=== PATIENT | male | born 1980 | race Caucasian/White ===

== ENCOUNTER 2016-04-27 14:07 | Emergency (ER) | payer BC ==
[2016-04-27] MEDS ORDERED: LORazepam 1 MG TAB As Ordered ONE (15:20)
[2016-04-27] MEDS ORDERED: NICOTINE 21MG/24HR 1 EA TRANSDERMAL As Ordered ONE (15:25)
[2016-04-27 16:06] LABS: ANION GAP 6 MEQ/L (8-16); BLOOD UREA NITROGEN 7 MG/DL (7-18); CALCIUM LEVEL 8.6 MG/DL (8.5-10.1); CARBON DIOXIDE LEVEL 31 MEQ/L (21-32); CHLORIDE LEVEL 109 MEQ/L (98-107); CREATININE FOR GFR 0.75 MG/DL (0.70-1.30); GLOMERULAR FILTRATION RATE > 60.0 (>60); GLUCOSE, FASTING 108 MG/DL (70-105); POTASSIUM SERUM 3.7 MEQ/L (3.5-5.1); SODIUM LEVEL 146 MEQ/L (136-145)
--- NOTE | 2016-04-27 17:01 | EDDOCDS ---
Physician Documentation [facility] Name: Edy Phelan Age: 35 yrs Sex: Male : 1980 Arrival Date: 04/27/2016 Time: 14:07 Bed D1 Private MD: Sathya Salazar MD Disposition: 04/27/16 16:52 Patient has left against medical advice. Impression: Alcohol abuse with intoxication. - Patients states they are going to Home/Self Care. - Condition is Fair. - Discharge Instructions: Alcohol Use Disorder. Medication Reconciliation, Local Pharmacy Hours form. Follow up: Sathya Salazar; When: Call to arrange an appointment; Reason: Recheck today's complaints, Continuance of care. - Problem is new. - Symptoms are unchanged. Historical: - Allergies: Demerol; opiates; - Home Meds: 1. lisinopril 20 mg Oral tab 1 tab once daily (Last dose: Unknown) 2. Prilosec 40 mg Oral cpDR 1 cap once daily (Last dose: Unknown) 3. metoprolol tartrate 100 mg oral tab 1 tab once daily (Last dose: Unknown) 4. simvastatin 40 mg oral tab 1 tab once daily (Last dose: Unknown) - PMHx: Alcoholism; GERD; Hypercholesterolemia; Hypertension; - PSHx: Cleft pallet and lip repair; - Social history: Smoking status: Patient uses tobacco products, heavy tobacco smoker. No barriers to communication noted, The patient speaks fluent Swedish. - Family history: Not pertinent. - : The pt / caregiver states he / she is not on anticoagulants. Home medication list is obtained from the patient, [employer] import data. - Exposure Risk Screening:: None identified. Vital Signs: 04/27 14:09 BP 174 / 108; Pulse 94; Resp 18; Temp 97.6(O); Pulse Ox 97% ; Weight 70.76 kg / 156 lbs cmb (M); Height 5 ft. 11 in. (180.34 cm); Pain 7/10; 14:09 Body Mass Index 21.76 (70.76 kg, 180.34 cm) cmb MDM: 15:10 Misc. Nursing Order ordered. sd1 15:10 Consult: Tin Worker ordered. sd1 15:11 MED Profile Ordered. EDMS 15:12 LORazepam 2 mg PO once ordered. bs6 15:32 Nicotine Patch 21 mg/24 hr 1 applic Transdermal once ordered. jc4 16:08 MED Profile Reviewed. sd1 Administered Medications: 15:23 Drug: LORazepam 2 mg [lorazepam 1 mg tablet (2 tabs)] Route: PO; jc4 15:32 Drug: Nicotine 1 applic [nicotine 21 mg/24 hr daily transdermal patch (1 patches)] jc4 Route: Transdermal; Site: left upper arm; Signatures: Dispatcher [employer] EDEmely Murphy MD MD sd1 Catrina Ramirez RN RN kcs Jeannie Rodriguez RN RN jc4 Toya Landis DO DO bs6 The chart was reviewed and I authenticate all verbal orders and agree with the evaluation and treatment provided.Corrections: (The following items were deleted from the chart) 16:28 14:23 Home Meds: Lisinopril Oral once daily; [facility] jc4 16:28 14:23 Home Meds: Prilosec 40 mg Oral cpDR 1 cap once daily; [facility] jc4 16: 14:23 Home Meds: Metoprolol Tartrate Oral once daily; [facility] 16:28 14:23 Home Meds: Simvastatin Oral once daily; [facility] jc4 MTDD
--- NOTE | 2016-04-27 17:01 | EDDOCDS ---
Nurse's Notes [facility] Name: Edy Phelan Age: 35 yrs Sex: Male : 1980 Arrival Date: 04/27/2016 Time: 14:07 Bed D1 Private MD: Sathya Salazar MD Diagnosis: Alcohol abuse with intoxication Presentation: 04/27 14:21 Presenting complaint: Patient states: he has been drinking straight for 4 days - here kcs for detox. Mental Health Triage Level: Level 1- Pt displays no suicidal or homicidal ideations and does not appear to be a danger to self or others. Adult Sepsis Screening: The patient does not have new or worsening altered mentation. Patient's respiratory rate is less than 22. Systolic blood pressure is greater than 100. Patient has a qSOFA score of 0- Negative Sepsis Screen. Suicide/Homicide risk assessment- the patient denies having any suicidal and/or homicidal ideations and does not present with any other emotional, behavioral or mental health complaints. Status: Patient is not a library services assistant or dependent. Transition of care: patient was not received from another setting of care. 14:21 Acuity: EDWARD Level 3 kcs 14:21 Method Of Arrival: Walkin/Carried/Asstd kcs Triage Assessment: 14:23 General: Appears unkempt, well developed, well nourished, Behavior is restless, kcs inappropriate laughing, swearing and calling me "babe". Pain: Denies pain. HIV screening NA for this visit Offered previously. Neurological: Level of Consciousness is awake, alert. Respiratory: Airway is patent Respiratory effort is even, unlabored, Respiratory pattern is regular, symmetrical. Derm: Skin is intact, is healthy with good turgor, Skin is dry, Skin is normal. Historical: - Allergies: Demerol; opiates; - Home Meds: 1. lisinopril 20 mg Oral tab 1 tab once daily (Last dose: Unknown) 2. Prilosec 40 mg Oral cpDR 1 cap once daily (Last dose: Unknown) 3. metoprolol tartrate 100 mg oral tab 1 tab once daily (Last dose: Unknown) 4. simvastatin 40 mg oral tab 1 tab once daily (Last dose: Unknown) - PMHx: Alcoholism; GERD; Hypercholesterolemia; Hypertension; - PSHx: Cleft pallet and lip repair; - Social history: Smoking status: Patient uses tobacco products, heavy tobacco smoker. No barriers to communication noted, The patient speaks fluent Estonian. - Family history: Not pertinent. - : The pt / caregiver states he / she is not on anticoagulants. Home medication list is obtained from the patient, [employer] import data. - Exposure Risk Screening:: None identified. Screenin:59 Screening information is obtained from left prior to speaking with staff. Fall risk: [facility] Unable to Assess. Assistance ADL's:. Assistance ADL's: unable to assess. Abuse/DV Screen: Unable to Assess. Nutritional screening: Unable to Assess. Advance Directives: Unable to assess Advance Directive status due to pt condition. home support is adequate. 17:00 Abuse/DV Screen: The patient / caregiver reports he/she is: pt cannot be assessed for [facility] living situation at this time. Assessment: 15:34 General: Appears in no apparent distress, Pt sitting on stretcher. States, "what [facility] happens if I go out to smoke?" Pt aware has Nicotine patch on. Pt alert. States has had last drink while he was in the truck pulling into hospital driveway. Color pink, skin warm and dry. Respirations easy and full. Family member at bedside. 16:28 General: Pt sitting up on stretcher. Eating at this time. No distress noted at this [facility] time. 16:57 General: Pt left department. Pt's visitor (ex-girlfriend"s grandfather) presented to [facility] the desk and stated, "I guess he got a cab ride home". Pt left prior to speaking with nurse. Vital Signs: 14:09 BP 174 / 108; Pulse 94; Resp 18; Temp 97.6(O); Pulse Ox 97% ; Weight 70.76 kg (M); cmb Height 5 ft. 11 in. (180.34 cm); Pain 7/10; 14:09 Body Mass Index 21.76 (70.76 kg, 180.34 cm) cmb Vitals: 14:09 Log In Time: April 27, 2016 at 14:07. b ED Course: 14:08 Patient visited by Kinza Dill. cmb 14:08 Sathya Salazar is Private Physician. cmb 14:08 Patient moved to Waiting b 14:11 RN notified that patient meets Red Flag criteria. cmb 14:14 Patient moved to Pre RCE cmb 14:22 Triage Initiated kcs 14:52 Jeannie Rodriguez, NICANOR is Primary Nurse. dsf 14:52 Patient moved to 8 dsf 14:54 Emely Gomez MD is Attending Physician. sd1 14:54 [facility] bs[facility] 15:12 Patient visited by Toya Landis DO. bs6 15:12 Patient visited by Toya Landis DO. bs6 15:32 MED Profile Sent. jc4 15:34 The patient / caregiver is instructed regarding the plan of care and ED course. jc4 16:28 Patient visited by Jeannie Rodriguez RN. jc4 16:51 Sathya Salazar is Referral Physician. bs6 16:51 Patient moved to D1 [facility] 16:59 No IV's were initiated during this patient's visit. No procedures done that require jc4 assistance. Administered Medications: 15:23 Drug: LORazepam 2 mg [lorazepam 1 mg tablet (2 tabs)] Route: PO; jc4 15:32 Drug: Nicotine 1 applic [nicotine 21 mg/24 hr daily transdermal patch (1 patches)] jc4 Route: Transdermal; Site: left upper arm; Order Results: Lab Order: MED Profile; SPEC'M 04/27/16 15:32 Test: GLUCOSE, FASTING; Value: 108; Range: 70-105; Abnormal: Above high normal; Units: MG/DL; Status: F Test: BLOOD UREA NITROGEN; Value: 7; Range: 7-18; Units: MG/DL; Status: F Test: CREATININE FOR GFR; Value: 0.75; Range: 0.70-1.30; Units: MG/DL; Status: F Test: GLOMERULAR FILTRATION RATE; Value: > 60.0; Range: >60; Status: F Test: SODIUM LEVEL; Value: 146; Range: 136-145; Abnormal: Above high normal; Units: MEQ/L; Status: F Test: POTASSIUM SERUM; Value: 3.7; Range: 3.5-5.1; Units: MEQ/L; Status: F Test: CHLORIDE LEVEL; Value: 109; Range: 98-107; Abnormal: Above high normal; Units: MEQ/L; Status: F Test: CARBON DIOXIDE LEVEL; Value: 31; Range: 21-32; Units: MEQ/L; Status: F Test: ANION GAP; Value: 6; Range: 8-16; Abnormal: Below low normal; Units: MEQ/L; Status: F Test: CALCIUM LEVEL; Value: 8.6; Range: 8.5-10.1; Units: MG/DL; Status: F Test Note: ; Units are mL/min/1.73 m2 Chronic Kidney Disease Staging per NKF: Stage I & II GFR >=60 Normal to Mildly Decreased Stage III GFR 30-59 Moderately Decreased Stage IV GFR 15-29 Severely Decreased Stage V GFR <15 Very Little GFR Left ESRD GFR <15 on VP HOME HEALTH Outcome: 16:52 Patient left against medical advice. bs6 16:58 Discharge Assessment: patient administered narcotics - yes. Pt provided with safe jc4 discharge. The following High Risk Discharge criteria are identified: Yes, patient is high-risk due to AMA status. The patient is leaving AMA: Left before signing form, Notification of AMA status is made to the charge nurse, the marriage and family social worker, the ED attending physician. Condition: undetermined. No special radiology studies were completed. Property :Personal belongings accompany Pt. 17:01 Patient left the ED. 4 Signatures: Emely Gomez MD MD sd1 Catrina Ramirez RN RN Judi Stanford RN Jeannie Hoskins RN RN jc4 Fuller, Desiree, RN RN dsf Boshart, Chelsea cmb Schoeneman, Brogan, DO DO bs6 Corrections: (The following items were deleted from the chart) 14:11 14:09 BP 174 / 108; Pulse 94bpm; Resp 18bpm; Pulse Ox 97%; Temp 97.6F; Height 5 ft. 11 cmb in.; Pain 7/10; cmb 16:28 14:23 Home Meds: Lisinopril Oral once daily; kcs jc4 16: 14:23 Home Meds: Prilosec 40 mg Oral cpDR 1 cap once daily; kcs jc4 16: 14:23 Home Meds: Metoprolol Tartrate Oral once daily; kcs jc4 16: 14:23 Home Meds: Simvastatin Oral once daily; kcs jc4 MTDD
--- NOTE | 2016-04-29 18:01 | EDDOCDS ---
Physician Documentation [facility] Name: Edy Phelan Age: 35 yrs Sex: Male : 1980 Arrival Date: 04/27/2016 Time: 14:07 Bed D1 Private MD: Sathya Salazar MD Disposition: 04/27/16 16:52 Patient has left against medical advice. Impression: Alcohol abuse with intoxication. - Patients states they are going to Home/Self Care. - Condition is Fair. - Discharge Instructions: Alcohol Use Disorder. Medication Reconciliation, Local Pharmacy Hours form. Follow up: Sathya Salzaar; When: Call to arrange an appointment; Reason: Recheck today's complaints, Continuance of care. - Problem is new. - Symptoms are unchanged. Historical: - Allergies: Demerol; opiates; - Home Meds: 1. lisinopril 20 mg Oral tab 1 tab once daily (Last dose: Unknown) 2. Prilosec 40 mg Oral cpDR 1 cap once daily (Last dose: Unknown) 3. metoprolol tartrate 100 mg oral tab 1 tab once daily (Last dose: Unknown) 4. simvastatin 40 mg oral tab 1 tab once daily (Last dose: Unknown) - PMHx: Alcoholism; GERD; Hypercholesterolemia; Hypertension; - PSHx: Cleft pallet and lip repair; - Social history: Smoking status: Patient uses tobacco products, heavy tobacco smoker. No barriers to communication noted, The patient speaks fluent Chinese. - Family history: Not pertinent. - : The pt / caregiver states he / she is not on anticoagulants. Home medication list is obtained from the patient, [employer] import data. - Exposure Risk Screening:: None identified. Vital Signs: 04/27 14:09 BP 174 / 108; Pulse 94; Resp 18; Temp 97.6(O); Pulse Ox 97% ; Weight 70.76 kg / 156 lbs cmb (M); Height 5 ft. 11 in. (180.34 cm); Pain 7/10; 14:09 Body Mass Index 21.76 (70.76 kg, 180.34 cm) cmb MDM: 15:10 Misc. Nursing Order ordered. sd1 15:10 Consult: Motor Vehicle Emissions Inspector ordered. sd1 15:11 MED Profile Ordered. EDMS 15:12 LORazepam 2 mg PO once ordered. bs6 15:32 Nicotine Patch 21 mg/24 hr 1 applic Transdermal once ordered. jc4 16:08 MED Profile Reviewed. sd1 04/28 10:25 Refusal of Services was scanned into [employer] and attached to record. gb : T-Sheet-- Draft Copy was scanned into [employer] and attached to record. gb Administered Medications: 04/27 15:23 Drug: LORazepam 2 mg [lorazepam 1 mg tablet (2 tabs)] Route: PO; jc4 15:32 Drug: Nicotine 1 applic [nicotine 21 mg/24 hr daily transdermal patch (1 patches)] jc4 Route: Transdermal; Site: left upper arm; Signatures: Dispatcher [employer] EDEmely Murphy MD MD sd1 Catrina Ramirez, RN RN Norma Tello Reg Reg gb Castle, Jennifer, RN RN jc4 Toya Landis DO DO bs6 The chart was reviewed and I authenticate all verbal orders and agree with the evaluation and treatment provided.Corrections: (The following items were deleted from the chart) 16:28 14:23 Home Meds: Lisinopril Oral once daily; kcs jc4 16:28 14:23 Home Meds: Prilosec 40 mg Oral cpDR 1 cap once daily; kcs jc4 16:28 14:23 Home Meds: Metoprolol Tartrate Oral once daily; kcs jc4 16:28 14:23 Home Meds: Simvastatin Oral once daily; kcs jc4 Attachments: 10:26 T-Sheet-- Draft Copy gb Chart Complete MTDD
--- NOTE | 2016-04-29 18:01 | EDDOCDS ---
Physician Documentation [facility] Name: Edy Phelan Age: 35 yrs Sex: Male : 1980 Arrival Date: 04/27/2016 Time: 14:07 Bed D1 Private MD: Sathya Salazar MD Disposition: 04/27/16 16:52 Patient has left against medical advice. Impression: Alcohol abuse with intoxication. - Patients states they are going to Home/Self Care. - Condition is Fair. - Discharge Instructions: Alcohol Use Disorder. Medication Reconciliation, Local Pharmacy Hours form. Follow up: Sathya Salazar; When: Call to arrange an appointment; Reason: Recheck today's complaints, Continuance of care. - Problem is new. - Symptoms are unchanged. Historical: - Allergies: Demerol; opiates; - Home Meds: 1. lisinopril 20 mg Oral tab 1 tab once daily (Last dose: Unknown) 2. Prilosec 40 mg Oral cpDR 1 cap once daily (Last dose: Unknown) 3. metoprolol tartrate 100 mg oral tab 1 tab once daily (Last dose: Unknown) 4. simvastatin 40 mg oral tab 1 tab once daily (Last dose: Unknown) - PMHx: Alcoholism; GERD; Hypercholesterolemia; Hypertension; - PSHx: Cleft pallet and lip repair; - Social history: Smoking status: Patient uses tobacco products, heavy tobacco smoker. No barriers to communication noted, The patient speaks fluent Uzbek. - Family history: Not pertinent. - : The pt / caregiver states he / she is not on anticoagulants. Home medication list is obtained from the patient, [employer] import data. - Exposure Risk Screening:: None identified. Vital Signs: 04/27 14:09 BP 174 / 108; Pulse 94; Resp 18; Temp 97.6(O); Pulse Ox 97% ; Weight 70.76 kg / 156 lbs cmb (M); Height 5 ft. 11 in. (180.34 cm); Pain 7/10; 14:09 Body Mass Index 21.76 (70.76 kg, 180.34 cm) cmb MDM: 15:10 Misc. Nursing Order ordered. sd1 15:10 Consult: Dopeman ordered. sd1 15:11 MED Profile Ordered. EDMS 15:12 LORazepam 2 mg PO once ordered. bs6 15:32 Nicotine Patch 21 mg/24 hr 1 applic Transdermal once ordered. jc4 16:08 MED Profile Reviewed. sd1 04/28 10:25 Refusal of Services was scanned into [employer] and attached to record. gb : T-Sheet-- Draft Copy was scanned into [employer] and attached to record. gb Administered Medications: 04/27 15:23 Drug: LORazepam 2 mg [lorazepam 1 mg tablet (2 tabs)] Route: PO; jc4 15:32 Drug: Nicotine 1 applic [nicotine 21 mg/24 hr daily transdermal patch (1 patches)] jc4 Route: Transdermal; Site: left upper arm; Signatures: Dispatcher [employer] EDEmely Murphy MD MD sd1 Catrina Ramirez, RN RN Norma Tello Reg Reg gb Castle, Jennifer, RN RN jc4 Toya Landis DO DO bs6 The chart was reviewed and I authenticate all verbal orders and agree with the evaluation and treatment provided.Corrections: (The following items were deleted from the chart) 16:28 14:23 Home Meds: Lisinopril Oral once daily; kcs jc4 16:28 14:23 Home Meds: Prilosec 40 mg Oral cpDR 1 cap once daily; kcs jc4 16:28 14:23 Home Meds: Metoprolol Tartrate Oral once daily; kcs jc4 16:28 14:23 Home Meds: Simvastatin Oral once daily; kcs jc4 Attachments: 10:26 T-Sheet-- Draft Copy gb Chart Complete MTDD
--- NOTE | 2016-04-29 18:01 | EDDOCDS ---
Nurse's Notes [facility] Name: Edy Phelan Age: 35 yrs Sex: Male : 1980 Arrival Date: 04/27/2016 Time: 14:07 Bed D1 Private MD: Sathya Salazar MD Diagnosis: Alcohol abuse with intoxication Presentation: 04/27 14:21 Presenting complaint: Patient states: he has been drinking straight for 4 days - here kcs for detox. Mental Health Triage Level: Level 1- Pt displays no suicidal or homicidal ideations and does not appear to be a danger to self or others. Adult Sepsis Screening: The patient does not have new or worsening altered mentation. Patient's respiratory rate is less than 22. Systolic blood pressure is greater than 100. Patient has a qSOFA score of 0- Negative Sepsis Screen. Suicide/Homicide risk assessment- the patient denies having any suicidal and/or homicidal ideations and does not present with any other emotional, behavioral or mental health complaints. Status: Patient is not a implementation services analyst or dependent. Transition of care: patient was not received from another setting of care. 14:21 Acuity: EDWARD Level 3 kcs 14:21 Method Of Arrival: Walkin/Carried/Asstd kcs Triage Assessment: 14:23 General: Appears unkempt, well developed, well nourished, Behavior is restless, kcs inappropriate laughing, swearing and calling me "babe". Pain: Denies pain. HIV screening NA for this visit Offered previously. Neurological: Level of Consciousness is awake, alert. Respiratory: Airway is patent Respiratory effort is even, unlabored, Respiratory pattern is regular, symmetrical. Derm: Skin is intact, is healthy with good turgor, Skin is dry, Skin is normal. Historical: - Allergies: Demerol; opiates; - Home Meds: 1. lisinopril 20 mg Oral tab 1 tab once daily (Last dose: Unknown) 2. Prilosec 40 mg Oral cpDR 1 cap once daily (Last dose: Unknown) 3. metoprolol tartrate 100 mg oral tab 1 tab once daily (Last dose: Unknown) 4. simvastatin 40 mg oral tab 1 tab once daily (Last dose: Unknown) - PMHx: Alcoholism; GERD; Hypercholesterolemia; Hypertension; - PSHx: Cleft pallet and lip repair; - Social history: Smoking status: Patient uses tobacco products, heavy tobacco smoker. No barriers to communication noted, The patient speaks fluent Croatian. - Family history: Not pertinent. - : The pt / caregiver states he / she is not on anticoagulants. Home medication list is obtained from the patient, [employer] data. - Exposure Risk Screening:: None identified. Screenin:59 Screening information is obtained from left prior to speaking with staff. Fall risk: [facility] Unable to Assess. Assistance ADL's:. Assistance ADL's: unable to assess. Abuse/DV Screen: Unable to Assess. Nutritional screening: Unable to Assess. Advance Directives: Unable to assess Advance Directive status due to pt condition. home support is adequate. 17:00 Abuse/DV Screen: The patient / caregiver reports he/she is: pt cannot be assessed for [facility] living situation at this time. Assessment: 15:34 General: Appears in no apparent distress, Pt sitting on stretcher. States, "what [facility] happens if I go out to smoke?" Pt aware has Nicotine patch on. Pt alert. States has had last drink while he was in the truck pulling into hospital driveway. Color pink, skin warm and dry. Respirations easy and full. Family member at bedside. 16:28 General: Pt sitting up on stretcher. Eating at this time. No distress noted at this [facility] time. 16:57 General: Pt left department. Pt's visitor (ex-girlfriend"s grandfather) presented to [facility] the desk and stated, "I guess he got a cab ride home". Pt left prior to speaking with nurse. Vital Signs: 14:09 BP 174 / 108; Pulse 94; Resp 18; Temp 97.6(O); Pulse Ox 97% ; Weight 70.76 kg (M); cmb Height 5 ft. 11 in. (180.34 cm); Pain 7/10; 14:09 Body Mass Index 21.76 (70.76 kg, 180.34 cm) cmb Vitals: 14:09 Log In Time: April 27, 2016 at 14:07. b ED Course: 14:08 Patient visited by Kinza Dill. cmb 14:08 Sathya Salazar is Private Physician. cmb 14:08 Patient moved to Waiting b 14:11 RN notified that patient meets Red Flag criteria. cmb 14:14 Patient moved to Pre RCE cmb 14:22 Triage Initiated kcs 14:52 Jeannie Rodriguez, NICANOR is Primary Nurse. dsf 14:52 Patient moved to 8 dsf 14:54 Emely Gomez MD is Attending Physician. sd1 14:54 Toya Landis DO is [facility]. bs6 15:12 Patient visited by Toya Landis DO. bs6 15:12 Patient visited by Toya Landis DO. bs6 15:32 MED Profile Sent. jc4 15:34 The patient / caregiver is instructed regarding the plan of care and ED course. jc4 16:28 Patient visited by Jeannie Rodriguez RN. jc4 16:51 Sathya Salazar is Referral Physician. bs6 16:51 Patient moved to D1 [facility] 16:59 No IV's were initiated during this patient's visit. No procedures done that require jc4 assistance. 04/28 10:25 Refusal of Services was scanned into [employer] and attached to record. gb 10:26 T-Sheet-- Draft Copy was scanned into [employer] and attached to record. gb Administered Medications: 04/27 15:23 Drug: LORazepam 2 mg [lorazepam 1 mg tablet (2 tabs)] Route: PO; jc4 15:32 Drug: Nicotine 1 applic [nicotine 21 mg/24 hr daily transdermal patch (1 patches)] jc4 Route: Transdermal; Site: left upper arm; Attachments: 04/28 10:25 Refusal of Services gb Order Results: Lab Order: MED Profile; SPEC'M 04/27/16 15:32 Test: GLUCOSE, FASTING; Value: 108; Range: 70-105; Abnormal: Above high normal; Units: MG/DL; Status: F Test: BLOOD UREA NITROGEN; Value: 7; Range: 7-18; Units: MG/DL; Status: F Test: CREATININE FOR GFR; Value: 0.75; Range: 0.70-1.30; Units: MG/DL; Status: F Test: GLOMERULAR FILTRATION RATE; Value: > 60.0; Range: >60; Status: F Test: SODIUM LEVEL; Value: 146; Range: 136-145; Abnormal: Above high normal; Units: MEQ/L; Status: F Test: POTASSIUM SERUM; Value: 3.7; Range: 3.5-5.1; Units: MEQ/L; Status: F Test: CHLORIDE LEVEL; Value: 109; Range: 98-107; Abnormal: Above high normal; Units: MEQ/L; Status: F Test: CARBON DIOXIDE LEVEL; Value: 31; Range: 21-32; Units: MEQ/L; Status: F Test: ANION GAP; Value: 6; Range: 8-16; Abnormal: Below low normal; Units: MEQ/L; Status: F Test: CALCIUM LEVEL; Value: 8.6; Range: 8.5-10.1; Units: MG/DL; Status: F Test Note: ; Units are mL/min/1.73 m2 Chronic Kidney Disease Staging per NKF: Stage I & II GFR >=60 Normal to Mildly Decreased Stage III GFR 30-59 Moderately Decreased Stage IV GFR 15-29 Severely Decreased Stage V GFR <15 Very Little GFR Left ESRD GFR <15 on TRACK RIDER Outcome: 04/27 16:52 Patient left against medical advice. bs6 16:58 Discharge Assessment: patient administered narcotics - yes. Pt provided with safe jc4 discharge. The following High Risk Discharge criteria are identified: Yes, patient is high-risk due to AMA status. The patient is leaving AMA: Left before signing form, Notification of AMA status is made to the charge nurse, the psychiatric social worker, the ED attending physician. Condition: undetermined. No special radiology studies were completed. Property :Personal belongings accompany Pt. 17:01 Patient left the ED. 4 Signatures: Emely Gomez MD MD sd1 Catrina Ramirez RN RN Judi Stanford RN RN Norma De La Garza, David Reg Jeannie Sutton RN RN jc4 Beatriz Rodríguez,RN RN Kinza Christine Brogan, DO DO bs6 Corrections: (The following items were deleted from the chart) 14:11 14:09 BP 174 / 108; Pulse 94bpm; Resp 18bpm; Pulse Ox 97%; Temp 97.6F; Height 5 ft. 11 cmb in.; Pain 7/10; cmb 16:28 14:23 Home Meds: Lisinopril Oral once daily; eduar ramesh4 : Home Meds: Prilosec 40 mg Oral cpDR 1 cap once daily; kcs jc4 Home Meds: Metoprolol Tartrate Oral once daily; kcs jc4 Home Meds: Simvastatin Oral once daily; [facility] jc4 Chart Complete MTDD
== END 2016-04-27 17:01 | disposition left against medical advice (07) ==
LOC: M ED 14:07
DX: F10.220 Alcohol dependence with intoxication, uncomplicated (principal); K21.9 Gastro-esophageal reflux disease without esophagitis; E78.00 Pure hypercholesterolemia, unspecified; I10 Essential (primary) hypertension; F17.210 Nicotine dependence, cigarettes, uncomplicated; Z79.899 Other long term (current) drug therapy; Z88.8 Allergy status to other drugs, medicaments and biological substances

== ENCOUNTER 2017-01-19 13:39 | Emergency (ER) | payer BC, SELFPAY ==
[~2017-01-19] VITALS: Ht 180.3 cm; Wt 70.5 kg
[2017-01-19 13:40] VITALS: BP 190/112
[2017-01-19] MEDS ORDERED: CEPH500C PO (14:26)
== END 2017-01-19 14:52 | disposition home or self-care (01) ==
LOC: M ED 13:39
DX: H00.013 Hordeolum externum right eye, unspecified eyelid (principal); Z72.0 Tobacco use